=== PATIENT | male | born 1980 | race Caucasian/White ===

== ENCOUNTER 2019-02-04 15:22 | Emergency (ER) | payer BC, OTHER ==
[2019-02-04 15:28] VITALS: BP 164/89; PULSE 78; TEMP 98.5; BMI 27.5
[2019-02-04] MEDS ORDERED: KETOROLAC TROMETHAMINE 60 MG/2 ML VIAL IM ONE (16:31)
--- NOTE | 2019-02-04 16:31 | PDOC ---
History of Present Illness - General Chief Complaint: Pain Stated Complaint: RT WRIST INJURY Time Seen by Provider: 02/04/19 15:41 - History of Present Illness Initial Comments: 02/04/19 16:31 CHIEF COMPLAINT: R wrist pain HISTORY OF PRESENT ILLNESS: 38 yo M with no PMH presents to fast track with R wrist pain x 1 week. Patient states that he woke up one morning with pain to wrist and the pain has been intermittent since then. Patient was seen at [facility] urgent care 3 days ago with negative x-ray and bloodwork for "gout and whatever" and given a referral to see ortho. Patient has appt with ortho this Monday but "I was driving this evening and it started to really hurt again." Patient states he has been taking ibuprofen with intermittent relief. No recent travel or sick contacts. PAST MEDICAL HISTORY: Denies past medical history FAMILY HISTORY: Denies SOCIAL HISTORY: Denies tobacco, alcohol, illicit drug use. SURGICAL HISTORY: Denies ALLERGIES: PCN REVIEW OF SYSTEMS General/Constitutional: Denies fever or chills. Denies weakness, weight change. HEENT: Denies change in vision. Denies ear pain or discharge. Denies sore throat. Cardiovascular: Denies chest pain or shortness of breath. Respiratory: Denies cough, wheezing, or hemoptysis. Gastrointestinal: Denies nausea, vomiting, diarrhea or constipation. Denies rectal bleeding. Genitourinary: Denies dysuria, frequency, or change in urination. Musculoskeletal: R wrist pain x 1 week. Skin: Denies rash or easy bruising. Neurologic: Denies headache, vertigo, loss of consciousness, or loss of sensation. PHYSICAL EXAM General Appearance: Well-appearing, appropriately dressed. No apparent distress , no intoxication. HEENT: EOMI, PERRLA, normal ENT inspection, normal voice, TMs normal, pharynx normal. No conjunctival pallor. No photophobia, scleral icterus. Neck: Supple. Trachea midline. No tenderness, rigidity, carotid bruit, stridor , lymphadenopathy, or thyromegaly. Respiratory/Chest: Lungs CTAB. No shortness of breath, chest tenderness, respiratory distress, accessory muscle use. No crackles, rales, rhonchi, stridor , wheezing, dullness Cardiovascular: RRR. S1, S2. No JVD, murmur, bradycardia, tachycardia. Vascular Pulses: Dorsalis-Pedis (R): 2+, Dorsalis-Pedis (L): 2+ Gastrointestinal/Abdominal: Normal bowel sounds. Abdomen soft, non-distended. No tenderness or rebound tenderness. No organomegaly, pulsatile mass, guarding , hernia, hepatomegaly, splenomegaly. Lymphatic: No adenopathy, tenderness. Musculoskeletal/Extremities: Pain elicited to R wrist with flexion of fingers. +Tinel's test. Normal inspection. FROM of all extremities, normal capillary refill. Pelvis Stable. No CVA tenderness. No tenderness to extremities, pedal edema, swelling, erythema or deformity. Integumentary: Appropriate color, dry, warm. No cyanosis, erythema, jaundice or rash Neurologic: concrete stone fabricator II-XII intact. Fully oriented, alert. Appropriate mood/affect. Motor strength 5/5. No appreciable EOM palsy, facial droop or sensory deficit. Past History - Past Medical History Allergies/Adverse Reactions: Allergies Allergy/AdvReac Type Severity Reaction Status Date / Time amoxicillin Allergy Verified 02/04/19 15:28 Penicillins Allergy Verified 02/04/19 15:28 Home Medications: Ambulatory Orders Ibuprofen 600 mg PO Q6H #40 tablet 02/04/19 Ibuprofen [Advil -] 600 mg PO TID PRN 02/04/19 Methyl Salicylate/Menthol [Icy Hot [place]] 99.2 gm TP ASDIR 02/04/19 COPD: No - Suicide/Smoking/Psychosocial Hx Smoking History: Never smoked *Physical Exam - Vital Signs Last Vital Signs Temp Pulse Resp BP Pulse Ox 98.5 F 78 18 164/89 98 02/04/19 15:25 02/04/19 15:25 02/04/19 15:25 02/04/19 15:25 02/04/19 15:25 Medical Decision Making - Medical Decision Making 02/04/19 16:34 38 yo M with no PMH presents to fast track with R wrist pain x 1 week. Clinical presentation consistent with tendonitis of R wrist. Patient already has f/u with ortho this week and was given wrist splint at urgent care. Toradol IM for pain control. NSAIDS RTC. Advised patient to take medication as prescribed and follow up with ortho as planned. Advised patient of signs and symptoms for return to ED. Patient verbalized understanding and agrees to plan. *DC/Admit/Observation/Transfer Diagnosis at time of Disposition: Tendonitis of wrist, right - Discharge Dispostion Disposition: HOME Condition at time of disposition: Stable Decision to Admit order: No - Prescriptions Prescriptions: Ibuprofen 600 mg PO Q6H #40 tablet - Referrals - Patient Instructions Printed Discharge Instructions: DI for Tendinitis Additional Instructions: Please take medications as prescribed. Follow up with orthopedics as scheduled for further evaluation. If you develop any new or worsening symptoms, pleae return to the ER. - Post Discharge Activity Forms/Work/School Notes: Back to Work
[2019-02-04] MEDS ORDERED: KETOROLAC TROMETHAMINE 60 MG/2 ML VIAL ONE (16:40)
== END 2019-02-04 16:44 | disposition home or self-care (01) ==
LOC: JERFT 15:22
PROC: 3E0233Z Introduction of Anti-inflammatory into Muscle, Percutaneous Approach (ICD-10-PCS; principal; 2019-02-04)
DX: M77.8 Other enthesopathies, not elsewhere classified (principal)
CPT/HCPCS: 99281-25